=== PATIENT | male | born 1995 | race African-American/Black ===

== ENCOUNTER 2019-12-01 08:45 | Inpatient (IN) | payer OTHER ==
[~2019-12-01] VITALS: Ht 177.8 cm; Wt 77.2 kg
--- NOTE | 2019-12-01 08:45 | NUR ---
PATIENT ARRIVED VIA EMS ON C-PAP PATIENT RECIEVED 10MG DECADRON IV, 125MG SOLUMEDROL IM, 0.3EPI IM AND 3 DUONEBS. AT BEDSIDE FOR EVAL
--- NOTE | 2019-12-01 08:50 | NUR ---
NC MOVED TO STRETCHER USING SHEET. REPORT TAKEN FROM EMS. PT PRESENTS WITH ASTHMA EXACERBATION COMPLAINS OF SHORT OF BREATH THIS MORNING. BREATH SOUNDS DIMINISHED BILAT. PT SITTING UPRIGHT SPEAKING IN ONE WORD SENTENCES. RESP RATE 22. PT AO X 3. SKIN PINK COOL AND DRY. MONITORS APPLIED. RESP THERAPY PRESENT TO START NEBULIZER TREATMENTS
[2019-12-01 09:20] LABS: HEMATOCRIT 48.2 % (39.0-50.0); HEMOGLOBIN 16.2 g/dl (14.0-18.0); IMMATURE GRANULOCYTES 0.5 % (0.0-5.0); MEAN CELL VOLUME 86.1 fL CALC (80.0-100.0); MEAN CORPUSCULAR HGB 28.9 pG CALC (26.0-32.0); MEAN CORPUSCULAR HGB CONC 33.6 g/dL CAL (32.0-36.0); NEUT# 12.42 thou/uL (1.82-7.42); RED BLOOD COUNT 5.6 mill/uL (4.70-6.10); RED CELL DISTRI WIDTH 12.7 % (11.5-15.5)
[2019-12-01 09:34] LABS: ALBUMIN 4.6 g/dL (3.2-5.0); ALKALINE PHOSPHATASE 60 u/l (38-126); ANION GAP 16 (6-22 (CALC)); BILIRUBIN, TOTAL 0.9 mg/dL (0.0-1.4); BUN 15 mg/dL (9-20); BUN/CREATININE RATIO 16 (12-20 (CALC)); CARBON DIOXIDE 20 mmol/l (22-30); CHLORIDE 103 mmol/l (95-108); CREATININE 0.9 mg/dL (0.7-1.3); GFR > 60 ML/MIN (>=60 (CALC)); GFR FOR AFR.AMER. > 60 ML/MIN (>=60 (CALC)); POTASSIUM 4.9 mmol/l (3.5-5.1); SGOT/AST 51 u/l (17-59); SODIUM 135 mmol/l (137-146)
[2019-12-01 09:45] LABS: MYOGLOBIN 204 ng/mL (0 - 121)
--- NOTE | 2019-12-01 09:47 | NUR ---
PT RESTING ON STRETCHER WATCHING TV. REPORTS FEELING BETTER. RESP RATE 20. EXPIRATORY WHEEZES BILAT.
[2019-12-01 09:59] LABS: URINE BILIRUBIN - DIPSTICK NEGATIVE (NEGATIVE); URINE BLOOD DIPSTICK NEGATIVE (NEGATIVE); URINE COLOR YELLOW; URINE GLUCOSE - DIPSTICK NEGATIVE (NEGATIVE); URINE KETONE 15 mg/dL (NEGATIVE); URINE LEUK ESTERASE NEGATIVE (NEGATIVE); URINE NITRITE - DIPSTICK NEGATIVE (Negative); URINE PROTEIN - DIPSTICK NEGATIVE (NEG-TRACE); URINE SPECIFIC GRAVITY >=1.030; URINE UROBILINOGEN - DIPSTICK 0.2 E.U./dL (0.2)
--- NOTE | 2019-12-01 10:15 | NUR ---
PT RESTING ON STRETCHER. WAITING ROOM ASSIGNMENT
--- NOTE | 2019-12-01 10:27 | NUR ---
MED SURG UNABLE TO TAKE REPORT AT THIS TIME
--- NOTE | 2019-12-01 10:35 | NUR ---
REPORT REC FROM ISABEL EISENBERG. CONSULTED WITH DR VAUGHAN WHETHER OR NOT PT SHOULD BE PLACED DOWN IN THE ISOLATION HALLWAY. PER ALEXUS PLACE PT IN REGULAR ROOM A LEVEL 2.
--- NOTE | 2019-12-01 10:38 | NUR ---
REPORT GIVEN TO ZAY EISENBERGWATER REGISTRAR. WAITING FOR ROOM TO BE READY.
--- NOTE | 2019-12-01 10:50 | NUR ---
PT TRANSPORTED VIA STRETCHER, TELEMETRY AND O2 IN PLACE. GUARD AT BEDSIDE
--- NOTE | 2019-12-01 10:51 | NUR ---
PT ARRIVED TO [facility] VIA STRETCHER ACCOMPANIED BY ISABEL EISENBERG. PT A&O X3. SHALLOW BREATHING NOTED. O2 VIA NC @2L IN PLACE. WHEEZING HEARD UPON AUSCULTATION. DR VAUGHAN AT BEDSIDE DISCUSSING POC. PT REPORTS TO BE FEELING BETTER THAN THIS MORNING. PT ABLE TO AMBULATE FROM BED TO SCALE WITH STEADY GAIT. SKIN INTACT. TIM HOSES APPLIED. ORIENTED PT TO ROOM. ASSESSMENT COMPLETED. DISCUSSED POC. CALL LIGHT IN REACH. CONTINUE TO MONITOR.
[2019-12-01 11:00] VITALS: BP 147/90
--- NOTE | 2019-12-01 15:37 | NUR ---
PT C/O OF SOB. O2% 100. INSTRUCTED PT TO CONCENTRATE ON HIS BREATHING AND TAKE SLOWER DEEPER BREATHS. VENTOLIN GIVEN.
[2019-12-01 15:41] VITALS: BP 130/77
[2019-12-01 19:00] VITALS: BP 151/86
--- NOTE | 2019-12-01 20:30 | NUR ---
PHYSICAL ASSESMENT COMPLETE. VS TAKEN BY BRUSH OR BROOM CUTTER @ 1900 ASSESSED. PLAN OF CARE REVIEWED.PT VERBALIZES UNDERSTANDING/DENIES QUESTION @ THIS TIME. PT DENIES ANY NEEDS @ THIS TIME. ITEMS WITHIN PT'S REACH. BED LOCKED IN LOW POSITION W/ BEDRAILS UP X2. CALL BACK WITHIN REACH, PT AGREES TO CALL PRN. PT IS [facility] INMATE. [facility] STAFF CO @ BEDSIDE.
--- NOTE | 2019-12-01 20:30 | NUR ---
PHYSICAL ASSESMENT COMPLETE. VS TAKEN BY RETAIL LOSS PREVENTION SPECIALIST @ 1999 ASSESSED. PLAN OF CARE REVIEWED.PT VERBALIZES UNDERSTANDING/DENIES QUESTION @ THIS TIME. PT DENIES ANY NEEDS @ THIS TIME. ITEMS WITHIN PT'S REACH. BED LOCKED IN LOW POSITION W/ BEDRAILS UP X2. CALL BACK WITHIN REACH, PT AGREES TO CALL PRN. PT IS [facility] INMATE. [facility] STAFF CO @ BEDSIDE.
[2019-12-01 23:55] VITALS: BP 147/79
--- NOTE | 2019-12-02 01:53 | NUR ---
PT RESTING IN BED COMFORTABLY. DENIES NEEDS. CO REMAINS @ BEDSIDE. CALL BACK REMAINS WITHIN REACH, AGREES TO CALL PRN.
[2019-12-02 04:18] VITALS: BP 131/80
--- NOTE | 2019-12-02 05:15 | NUR ---
PT RESTING COMFORTALY IN BED. NO APPARENT DISTRESS OR DISCOMFORT. DENIES NEEDS @ THIS TIME. PHYSICAL ASSESMENT REMAINS UNCHANGED FROM START OF SHIFT BASELINE. VSS. ITEMS REMAIN WITHIN REACH. BED REMAINS LOCKED IN LOW POSITION W/ BEDRAILS UPX2. CALL BACK REMAINS WITHIN REACH, AGREES TO CALL PRN. CO REMAINS @ BEDSIDE.
[2019-12-02 07:15] VITALS: BP 141/77
--- NOTE | 2019-12-02 07:15 | NUR ---
PT LAYING IN BED. A&O X3. NO DISTRESS NOTED, O2 VIA NC IN PLACE @2L. PT REPORTS THAT HIS BREATHING HAS BEEN GETTING BETTER SINCE YESTERDAY. O2 REMOVED PT O2 AT 99-100 ON ROOM AIR. EXPLAINED TO PT THAT O2 WAS GOING TO BE LEFT AT BEDSIDE IF NEEDED. PT VERBALIZED UNDERSTANDING. ASSESSMENT COMPLETED. DISCUSSED POC. CALL LIGHT IN REACH. CONTINUE TO MONITOR.
--- NOTE | 2019-12-02 10:35 | NUR ---
REPORT AND UPDATE ON PT GIVEN TO [facility] NURSE.
[2019-12-02] MEDS ORDERED: ALBUTEROL SUL0.083 % IN (11:20)
[2019-12-02] MEDS ORDERED: MEDDOSEPAK PO (11:20)
[2019-12-02] MEDS ORDERED: VENTOLIN H108 MCG/AC IN (11:22)
--- NOTE | 2019-12-02 13:05 | NUR ---
D/C INSTRUCTIONS GIVEN TO PT WITH GUARD AT BEDSIDE. IVS INTACT UPON REMOVAL.
--- NOTE | 2019-12-02 14:16 | NUR ---
Discharge instructions given. Patient verbalizes understanding of same. [facility] All belongings sent with pt.
--- NOTE | 2019-12-02 14:26 | NUR ---
REPORT GIVEN TO MAGDALENA AT [facility].
--- NOTE | 2019-12-06 09:54 | NUR ---
CALLED FERNANDO VARGAS APRN AND GAVE NEGATIVE COVID TEST RESULTS.
--- NOTE | 2019-12-06 10:12 | NUR ---
CALLED [facility] AND SPOKE WITH JANUSZ IN MED[facility]. GAVE NEGATIVE COVID TEST RESULTS. SHE ASKED THAT RESULTS GET FAXED TO [phone]. RESULTS FAXED.
== END 2019-12-02 14:16 | DRG 203 ==
LOC: ED 08:45 → ED-I 09:52 → ED 10:12 → ED-I 10:13 → MS2 10:26
PROVIDERS: ADMIT Internal Medicine; ATTEND Internal Medicine
DX: J45.902 Unspecified asthma with status asthmaticus (principal); Z20.828 Contact with and (suspected) exposure to other viral communicable diseases
CPT/HCPCS: J3475